=== PATIENT | male | born 1995 | race Caucasian/White ===

== ENCOUNTER 2017-10-14 12:34 | Emergency (ER) | payer SELFPAY ==
[~2017-10-14] VITALS: Ht 188 cm; Wt 84.0 kg
[2017-10-14 12:35] VITALS: BP 142/78; PULSE 99; RESP 18; TEMP 98.7; O2SAT 100
--- NOTE | 2017-10-14 13:13 | PD ---
HPI Chief Complaint: Oral / Dental Pain or Problem Time Seen by Provider: 13:04 Travel History International Travel<30 days: No Contact w/Intl Traveler<30days: No Traveled to known affect area: No History of Present Illness HPI 22-year-old male presents to [facility] complaining of upper mouth roof ulcers for 1 week. Patient states that the ulcers are somewhat painful and burning. Patient denies unusual foods, new medications. States he believes the ulcers are from his molars coming in. He says he used to have braces and thinks this may be a contributing cause. Says he tried to use smokeless tobacco 2 weeks ago and this this may have caused his symptoms too. Denies recent illness, fever, chills, travel. PFSH Past Medical History Medical History: Denies Significant Hx Past Surgical History Appendectomy: Yes Social History Alcohol Use: Yes Tobacco Use: Yes Substance Use: No Allergies-Medications (Allergen,Severity, Reaction): Coded Allergies: No Known Allergies (Unverified , 10/14/17) Reported Meds & Prescriptions Reported Meds & Active Scripts Active Magic Mouthwash Pediatric/Adult Liq (Lidocaine/Diphenhydr/Alum/Mg/Simeth) 60 Ml Susp 5 Ml SWISH-SPIT ACHS 5 Days Each 5mL contains: Diphenydramine 4.5mg, Viscous Lidocaine 2% 10mg, Maalox Advanced Regular Strength 2.7ml Review of Systems Except as stated in HPI: all other systems reviewed are Neg Physical Exam Narrative GENERAL: WD, WN in NAD SKIN: Warm and dry. HEAD: Normocephalic. EYES: No scleral icterus. No injection or drainage. Mouth: BL upper anterior hard palate with ridged, nonfluctuant lesions, TTP, non friable. NECK: Supple, trachea midline. No JVD or lymphadenopathy. CARDIOVASCULAR: Regular rate and rhythm without murmurs, gallops, or rubs. RESPIRATORY: Breath sounds equal bilaterally. No accessory muscle use. GASTROINTESTINAL: Abdomen soft, non-tender, nondistended. MUSCULOSKELETAL: No cyanosis, or edema. BACK: Nontender without obvious deformity. No CVA tenderness. Data Data Last Documented VS Vital Signs Date Time Temp Pulse Resp B/P (MAP) Pulse Ox O2 Delivery O2 Flow Rate FiO2 10/14/17 12:35 98.7 99 18 142/78 (99) 100 Room Air Orders Orders Ed Discharge Order (10/14/17 13:17) [facility] Medical Decision Making Medical Screen Exam Complete: Yes Emergency Medical Condition: Yes Differential Diagnosis Aphthous ulcers, herpes stomatitis, gingivitis Narrative Course 22-year-old male presents to primary complaining of upper mouth roof ulcers for 1 week. Patient states that the ulcers are somewhat painful and burning. Patient denies unusual foods, new medications. States he believes the ulcers are from his molars coming in. He says he used to have braces and thinks this may be a contributing cause. Says he tried to use smokeless tobacco 2 weeks ago and this this may have caused his symptoms too. Denies recent illness, fever, chills, travel. States he will follow up with his dentist next week as scheduled. Vital signs stable. Physical exam without evidence of infectious process to hard palate. TTP to anterior portion of hard palate, consistent with ulcers. Pt will be discharged home with magic mouthwash for symptomatic relief. Provided reassurance as this did not appear to be an infectious process. Advised to follow up with dentist as scheduled. Return to the ED for worsening symptoms. Diagnosis Primary Impression: Aphthous ulcer Referrals: Dentist Additional Instructions: Follow up with your primary care physician within 2-3 days. If your symptoms persist or worsen, return to the emergency department. Take medication as prescribed. Follow-up with your dentist as discussed. Scripts Lxqfsecsniusyqb-Wotvoyrcq-Bkg-Alum-Simeth Liq (Magic Mouthwash Pediatric/Adult Liq) 60 Ml Susp 5 ML SWISH-SPIT ACHS for Mouth sores for 5 Days, #60 ML 0 Refills Each 5mL contains: Diphenydramine 4.5mg, Viscous Lidocaine 2% 10mg, Maalox Advanced Regular Strength 2.7ml Prov: Rolo De Oliveira MD 10/14/17 Disposition: 01 DISCHARGE HOME Condition: Stable Niki Rollins Oct 14, 2017 13:13
[2017-10-14] MEDS ORDERED: MAGICPED SWISH-SPIT (13:16)
== END 2017-10-14 13:38 | disposition home or self-care (01) ==
LOC: NEPD 12:34
DX: K12.0 Recurrent oral aphthae (principal); Z72.0 Tobacco use
CPT/HCPCS: 99283